=== PATIENT | male | born 1945 | race Caucasian/White ===

== ENCOUNTER 2017-11-23 02:46 | Emergency (ER) | payer MEDICARE, OTHER ==
[2017-11-23 03:06] VITALS: BP 169/99
[2017-11-23] MEDS ORDERED: Bacitracin Oint 1 GM U/D Packet TOP ONE (03:25)
[2017-11-23] MEDS ORDERED: Diphtheria,Pertussis(Acell),Tetanus Vaccine 0.5 ML SDV IM ONE (03:27)
--- NOTE | 2017-11-23 03:50 | EDM.PDOC ---
ED HPI GENERAL MEDICAL PROBLEM - General Chief Complaint: Laceration Stated Complaint: FELL CUT LEFT EYE Time Seen by Provider: 11/23/17 03:20 Source of Information: Reports: Patient History Limitations: Reports: No Limitations - History of Present Illness INITIAL COMMENTS - FREE TEXT/NARRATIVE: 72-year-old male fell out of bed sustaining a laceration at the lateral quarter of his left eyebrow. He's developing some periorbital ecchymosis but has no bony tenderness. He is also nervous because he is on Coumadin and is sustained head injury so he wanted to be checked out. He drove here from [place], is walking normally, has no neurologic complaints, visual complaints, and only hit his head on the local injured area on the lateral eyebrow. Denies neck pain. Onset: Sudden Duration: Hour(s): Severity: Mild (About one hour ago) Associated Symptoms: Reports: No Other Symptoms - Related Data Allergies Allergy/AdvReac Type Severity Reaction Status Date / Time No Known Allergies Allergy Verified 11/23/17 03:06 Home Meds: Home Meds Warfarin Sodium [Warfarin Sodium] 5 - 10 mg PO DAILY 11/23/17 [History] Past Medical History HEENT History: Reports: Cataract Cardiovascular History: Reports: Afib, Hypertension Neurological History: Reports: CVA - Past Surgical History HEENT Surgical History: Reports: Cataract Surgery GI Surgical History: Reports: Colonoscopy Social & Family History - Tobacco Use Smoking Status *Q: Never Smoker Second Hand Smoke Exposure: No - Caffeine Use Caffeine Use: Reports: Coffee - Recreational Drug Use Recreational Drug Use: No ED ROS GENERAL - Review of Systems Review Of Systems: See Below Constitutional: Denies: Fever Respiratory: Denies: Shortness of Breath Cardiovascular: Denies: Chest Pain GI/Abdominal: Denies: Nausea, Vomiting Skin: Reports: Bruising Neurological: Denies: Headache ED EXAM, SKIN/RASH Exam: See Below Exam Limited By: No Limitations General Appearance: Alert, No Apparent Distress Eye Exam: Left Eye: Periorbital Changes (Patient has a periorbital ecchymosis developing) Head: Other (He has a 2 cm laceration over the lateral left eyebrow) Neck: Non-Tender Respiratory/Chest: No Respiratory Distress Course - Vital Signs Last Recorded V/S: Last Vital Signs Temp 97.5 F 11/23/17 03:03 Pulse 62 11/23/17 03:03 Resp 18 11/23/17 03:03 BP 169/99 H 11/23/17 03:03 Pulse Ox 97 11/23/17 03:03 - Orders/Labs/Meds Orders: Active Orders 24 hr Category Date Time Status Vaccines to be Administered [RC] PER UNIT ROUTINE Care 11/23/17 03:27 Active Meds: Medications Discontinued Medications Generic Name Dose Route Start Last Admin Trade Name Jose PRN Reason Stop Dose Admin Bacitracin 1 dose 11/23/17 03:25 11/23/17 03:29 Bacitracin Oint 1 Gm TOP 11/23/17 03:26 1 dose ONETIME ONE Administration Diphtheria/Tetanus/Acell Pertussis 0.5 ml 11/23/17 03:27 11/23/17 03:37 Adacel IM 11/23/17 03:28 0.5 ml .ONCE ONE Administration Lidocaine HCl 5 ml 11/23/17 03:24 11/23/17 03:29 Xylocaine-Mpf 1% INJECT 11/23/17 03:25 5 ml ONETIME ONE Administration - Re-Assessments/Exams Free Text/Narrative Re-Assessment/Exam: 11/23/17 03:48 The area was infiltrated with 1% lidocaine, washed thoroughly with saline and it was fairly deep. 2 4-0 Ethilon sutures and 1 5-0 Ethilon suture was used to close the laceration. Topical bacitracin and a Band-Aid was applied, he was given a TDap Booster and the sutures can be removed next Wednesday morning. Departure - Departure Time of Disposition: 03:57 Disposition: Home, Self-Care 01 Condition: Good Clinical Impression: Laceration of eyebrow, left Qualifiers: Encounter type: initial encounter Qualified Code(s): S01.112A - Laceration without foreign body of left eyelid and periocular area, initial encounter - Discharge Information Instructions: Laceration Care, Adult, [id number], Facial Laceration, Easy-to- Read Referrals: Claudio Patton MD [Primary Care Provider] - Forms: ED Department Discharge Care Plan Goals: Keep wound clean while healing, and sutures can be removed next Wednesday morning in 6 days. Return sooner if concerns of infection or not healing satisfactorily. - My Orders Last 24 Hours: My Active Orders 11/23/17 03:27 Vaccines to be Administered [RC] PER UNIT ROUTINE - Assessment/Plan Last 24 Hours: My Active Orders 11/23/17 03:27 Vaccines to be Administered [RC] PER UNIT ROUTINE
== END 2017-11-23 03:57 | disposition home or self-care (01) ==
LOC: JP.ED 02:46
DX: S01.112A Laceration without foreign body of left eyelid and periocular area, initial encounter (principal); I10 Essential (primary) hypertension; I48.91 Unspecified atrial fibrillation; Z23 Encounter for immunization; Z79.01 Long term (current) use of anticoagulants; W06.XXXA Fall from bed, initial encounter
CPT/HCPCS: 12011; 90471; 90715; 99282-25; 99284-25

== ENCOUNTER 2024-02-28 17:31 | Emergency (ER) | payer MEDICARE, OTHER ==
[2024-02-28] MEDS: Iopamidol 755 Mg/ML 100 ML Bottle IV SCH (18:00)
[2024-02-28] MEDS: Sodium Chloride 0.9% 100 ML IV SCH (18:00)
[2024-02-28 18:20] LABS: BASOPHILS ABSOLUTE AUTO 0.04 K/uL (0.00-0.10); BASOPHILS PERCENT AUTO 0.7 % (0.1-1.3); EOSINOPHILS PERCENT AUTO 1.7 % (0.0-5.4); HEMATOCRIT 37.7 % (38.4-49.7); HEMOGLOBIN 12.8 g/dL (12.9-16.9); IMMATURE GRAN ABSOLUTE AUTO 0.02 K/uL (0.00-0.23); IMMATURE GRAN PERCENT AUTO 0.3 % (0.0-0.7); LYMPHOCYTES ABSOLUTE AUTO 1.01 K/uL (0.8-3.3); LYMPHOCYTES PERCENT AUTO 16.8 % (11.4-47.7); MEAN CORPUSCULAR HEMOGLOBIN 31.8 pg (31.6-35.5); MEAN CORPUSCULAR VOLUME 93.8 fL (81.4-99.0); MONOCYTES ABSOLUTE AUTO 0.49 K/uL (0.20-0.90); MONOCYTES PERCENT AUTO 8.2 % (3.3-12.6); NEUTROPHILS ABSOLUTE AUTO 4.35 K/uL (1.0-7.6); NEUTROPHILS PERCENT AUTO 72.3 % (40.0-78.1); PLATELET COUNT,PLT 127 K/uL (130-375); RED BLOOD CELL COUNT 4.02 M/uL (4.14-5.76)
[2024-02-28 18:41] LABS: CALCIUM 8.6 mg/dL (8.5-10.1); CREATININE 1.1 mg/dL (0.8-1.3); EST CRCL DRUG DOSING (CG) 59.77 mL/min; POTASSIUM,K 3.8 mmol/L (3.6-5.2); TROPONIN I HIGH SENSITIVITY 9.2 pg/mL (<=60.3)
[2024-02-28 18:43] LABS: ANION GAP 13.8 mmol/L (5.0-14.0)
[2024-02-28 22:37] VITALS: BP 162/97; PULSE 55
== END 2024-02-28 23:20 | disposition other institution (70) ==
LOC: JP.ED 17:31
DX: I63.9 Cerebral infarction, unspecified (principal); I48.11 Longstanding persistent atrial fibrillation; S00.03XA Contusion of scalp, initial encounter; I10 Essential (primary) hypertension; Z88.8 Allergy status to other drugs, medicaments and biological substances; Z79.01 Long term (current) use of anticoagulants; W19.XXXA Unspecified fall, initial encounter
CPT/HCPCS: 36415; 70450; 70496; 70498; 72125; 76377; 80048; 84484; 85025; 93005; 99285; J3490; Q9967

== ENCOUNTER 2024-06-11 16:09 | Emergency (ER) | payer MEDICARE, OTHER ==
[2024-06-11 18:06] VITALS: BP 95/71; PULSE 50
[2024-06-11 18:18] LABS: BASOPHILS ABSOLUTE AUTO 0.02 K/uL (0.00-0.10); BASOPHILS PERCENT AUTO 0.2 % (0.1-1.3); EOSINOPHILS ABSOLUTE AUTO 0.02 K/uL (0.00-0.40); EOSINOPHILS PERCENT AUTO 0.2 % (0.0-5.4); HEMATOCRIT 31.9 % (38.4-49.7); HEMOGLOBIN 10.6 g/dL (12.9-16.9); IMMATURE GRAN ABSOLUTE AUTO 0.04 K/uL (0.00-0.23); IMMATURE GRAN PERCENT AUTO 0.4 % (0.0-0.7); LYMPHOCYTES ABSOLUTE AUTO 1.07 K/uL (0.8-3.3); LYMPHOCYTES PERCENT AUTO 11.3 % (11.4-47.7); MEAN CORPUSCULAR HEMOGLOBIN 30.5 pg (31.6-35.5); MEAN CORPUSCULAR HGB CONC 33.2 g/dL (31.6-35.5); MEAN CORPUSCULAR VOLUME 91.9 fL (81.4-99.0); MONOCYTES ABSOLUTE AUTO 1.09 K/uL (0.20-0.90); MONOCYTES PERCENT AUTO 11.5 % (3.3-12.6); NEUTROPHILS ABSOLUTE AUTO 7.25 K/uL (1.0-7.6); NEUTROPHILS PERCENT AUTO 76.4 % (40.0-78.1); PLATELET COUNT,PLT 132 K/uL (130-375); RED BLOOD CELL COUNT 3.47 M/uL (4.14-5.76); WHITE BLOOD CELL COUNT,WBC 9.5 K/uL (3.2-11.0)
[2024-06-11 18:21] LABS: APPEARANCE,URINE SLIGHTLY CLOUDY (CLEAR); BILIRUBIN,URINE NEGATIVE (NEGATIVE); COLOR,URINE YELLOW (YELLOW); GLUCOSE,URINE NEGATIVE (NEGATIVE); KETONES,URINE NEGATIVE (NEGATIVE); LEUKOCYTE ESTERASE,URINE MODERATE (NEGATIVE); NITRITE,URINE POSITIVE (NEGATIVE); OCCULT BLOOD,URINE LARGE (NEGATIVE); PH,URINE 6.5 (5.0-8.0); PROTEIN,URINE 100 mg/dL (NEGATIVE)
[2024-06-11 18:30] LABS: RBC,URINE 50-75 (0-5)
[2024-06-11 18:31] LABS: AMORPHOUS SEDIMENT,URINE FEW; BACTERIA,URINE MANY; EPITHELIAL CELLS,URINE NOT SEEN; MUCUS,URINE NOT SEEN
[2024-06-11 18:33] LABS: CALCIUM 8.4 mg/dL (8.5-10.1); CREATININE 1.2 mg/dL (0.8-1.3); EST CRCL DRUG DOSING (CG) 53.89 mL/min; POTASSIUM,K 3.6 mmol/L (3.6-5.2)
[2024-06-11 18:34] LABS: ANION GAP 13.6 mmol/L (5.0-14.0)
[2024-06-11] MEDS: Nitrofurantoin Monohydrate/Macrocrystalline 100 MG Cap PO ONE (19:19)
== END 2024-06-11 19:22 | disposition home or self-care (01) ==
LOC: JP.ED 16:09
DX: N30.01 Acute cystitis with hematuria (principal); I95.9 Hypotension, unspecified; R42 Dizziness and giddiness; I10 Essential (primary) hypertension; I48.91 Unspecified atrial fibrillation; Z79.01 Long term (current) use of anticoagulants; Z79.899 Other long term (current) drug therapy; Z88.8 Allergy status to other drugs, medicaments and biological substances
CPT/HCPCS: 36415; 80048; 81001; 85025; 87086; 87088; 87186; 99284; A9270

== ENCOUNTER 2024-11-23 07:35 | Day surgery (SDC) | payer MEDICARE, OTHER ==
[2024-11-23] MEDS: Lactated Ringers 1,000 ML IV SCH (08:03)
[2024-11-23] MEDS ORDERED: Propofol 200 MG/20 ML SDV ONE (08:20)
[2024-11-23] MEDS ORDERED: fentaNYL 50 MCG/ML SDV ONE (08:20)
[2024-11-23 11:23] VITALS: BP 124/94; PULSE 61
== END 2024-11-23 11:45 | disposition home or self-care (01) ==
LOC: JP.SDS 07:35
PROVIDERS: ATTEND Surgery
DX: K63.5 Polyp of colon (principal); I10 Essential (primary) hypertension
CPT/HCPCS: 00811-QZ; 88305; J2704; J3010; J7120